=== PATIENT | male | born 1990 | race Caucasian/White ===

== ENCOUNTER 2017-11-11 01:15 | Emergency (ER) | payer SELFPAY ==
[2017-11-11] MEDS ORDERED: 0.9 % SODIUM CHLORIDE 1,000 ML BAG IV ONE (01:44)
[2017-11-11] MEDS ORDERED: KETOROLAC 30 MG/ML VIAL IVP ONE (01:44)
[2017-11-11] MEDS ORDERED: ONDANSETRON HCL IV 4 MG/2 ML VIAL IV ONE (01:44)
--- NOTE | 2017-11-11 01:51 | Emergency Department Record ---
History of Present Illness - General Chief complaint: Flank Pain Stated complaint: KIDNEY STONE Time Seen by Provider: 11/11/17 01:34 Source: Patient, Family Mode of Arrival: Ambulatory Limitations: No limitations - History of Present Illness Initial comments: 27 yo male presents with right flank pain for the last 4 hours that wraps around. He states it is sharp. It is associated with nausea and vomiting. No diarrhea. A week ago he had similar pain. 3 months ago he had blood in his urine that resolved. About 4 years ago he had renal stones that passed spontaneously. He did follow up with a urologist in [place] at that time. No fever. MD Complaint: Other Onset/Timin -: Hour(s) Location: Right flank Radiation: RLQ Severity scale (1-10): 6 Quality: Other Consistency: Constant Improves with: None Reports: Nausea/vomiting - Related Data Previous Rx's Medication Instructions Recorded Hydrocodone/Acetaminophen [[place] 1 each PO Q6H #12 tablet 11/11/17 7.5-325 Tablet] Allergies Allergy/AdvReac Type Severity Reaction Status Date / Time No Known Drug Allergies Allergy Verified 11/11/17 01:31 Travel Screening - Travel/Exposure Within Last 30 Days Have you traveled within the last 30 days?: No - Travel Symptoms Symptom Screening: None Review of Systems Constitutional: Denies: Chills, Fever Eyes: Denies: Eye discharge ENT: Denies: Congestion, Throat pain Respiratory: Denies: Cough Cardiovascular: Denies: Chest pain Endocrine: Denies: Fatigue Gastrointestinal: Reports: As per HPI, Abdominal pain, Nausea, Vomiting Genitourinary: Denies: Dysuria, Frequency, Retention, Testicular pain Musculoskeletal: Denies: Arthralgia, Back pain, Myalgia Skin: Denies: Bruising, Change in color, Rash Neurological: Denies: Headache, Numbness, Weakness Psychiatric: Denies: Anxiety Hematological/Lymphatic: Denies: Blood Clots, Easy bleeding, Easy bruising, Swollen glands Past Medical History - SOCIAL HISTORY Smoking Status: Never smoker - RESPIRATORY Hx Respiratory Disorders: No - CARDIOVASCULAR Hx Cardio Disorders: No - NEURO Hx Neuro Disorders: No - GI Hx GI Disorders: No - Hx Genitourinary Disorders: Yes Hx Kidney Stones: Yes - ENDOCRINE Hx Endocrine Disorders: No - MUSCULOSKELETAL Hx Musculoskeletal Disorders: No - PSYCH Hx Psych Problems: No - HEMATOLOGY/ONCOLOGY Hx Hematology/Oncology Disorders: No Family Medical History Any Significant Family History?: No Family Hx Comment (NOT TO BE USED IN PLACE OF ITEMS BELOW): unknown Physical Exam - General General Appearance: Alert, Oriented x3, Cooperative, No acute distress Limitations: No limitations - Head Head exam: Normal inspection - Eye Eye exam: Normal appearance, PERRL. negative: Conjunctival injection, Periorbital swelling - ENT ENT exam: Normal exam, Mucous membranes moist Ear exam: Normal external inspection Nasal Exam: Normal inspection Mouth exam: Normal external inspection - Neck Neck exam: Normal inspection, Full ROM. negative: Tenderness - Respiratory Respiratory exam: Normal lung sounds bilaterally. negative: Respiratory distress - Cardiovascular Cardiovascular Exam: Regular rate, Normal rhythm, Normal heart sounds - GI/Abdominal GI/Abdominal exam: Soft. negative: Distended, Guarding, Rebound, Rigid, Tenderness - Rectal Rectal exam: negative: Deferred - exam: negative: Deferred - Extremities Extremities exam: Normal inspection, Full ROM, Normal capillary refill. negative: Tenderness - Back Back exam: Reports: Normal inspection, Full ROM. Denies: CVA tenderness (R), Muscle spasm, Rash noted, Tenderness - Neurological Neurological exam: Alert, Normal gait, Oriented X3 - Psychiatric Psychiatric exam: Normal affect, Normal mood - Skin Skin exam: Dry, Intact, Normal color, Warm Course Vital Signs 11/11/17 01:32 Temperature 98.2 F Pulse Rate 52 L Respiratory 16 Rate Blood Pressure 111/77 Pulse Ox 100 - Reevaluation(s) Reevaluation #1: 11/11/17 02:43 The CBC and CMP were reviewed No acute changes The UA has not been given at this time The CT report is pending from [facility]. 11/11/17 02:[address] report was reviewed. High grade obstructive uropathy in the mid right ureter with two stones, 1mm and 6mm. The results were discussed with the patient. His pain is well controlled at this time waiting for a UA. 11/11/17 02:58 EMR reviewed. Prior renal stone was in 2013. 11/11/17 03:03 The pain is currently gone at this time 11/11/17 03:25 The UA is negative for Nitrite and LE. No initial signs of infection The pain remains controlled at this time There is no formulation technician urology at this time at [facility] I informed the patient His pain is well controlled. I offered to call [facility] ED for transfer given he may not pass this stone. He declined transfer at this time. He prefers trial at home to pass the stone given the pain is well controlled and started a few hours prior. He was informed he will need to be seen immediately if he has fever, uncontrolled pain or any concerns. I explained that at 6mm there is an increased chance the stone may not pass. He clearly understands this and the plan to be seen immediately if the stone does not pass or if the pain is not well controlled. I informed him he can change his mind anytime for my assistance in transferring him to a hospital with on-call urology. 11/11/17 03:35 11/11/17 03:51 At this time the patient still maintains he wants DC home. His pain is minimal. We again discussed being seen if the pain returns, and fever or vomiting. Medical Decision Making - Lab Data Result diagrams: 11/11/17 01:43 11/11/17 01:43 Disposition Disposition: Discharge Clinical Impression: Renal calculus or stone, Renal colic on right side Disposition: Home, Self-Care Condition: (1) Good Instructions: Renal Colic (ED) Additional Instructions: You will need to be rechecked if the pain returns and is not well controlled Be seen immediately if vomiting, uncontrolled pain, fever or any new concerns Prescriptions: Hydrocodone/Acetaminophen [[place] 7.5-325 Tablet] 1 each PO Q6H #12 tablet Forms: Patient Portal Access Time of Disposition: 03:30 Quality - Quality Measures Quality Measures: N/A - Blood Pressure Screening Does Patient Have Any of the Following: No Blood Pressure Classification: Normal BP Reading Systolic Measurement: 111 Diastolic Measurement: 77 Screening for High Blood Pressure: < Normal BP, F/U Not Required > [G8783]
[2017-11-11 02:02] LABS: HEMATOCRIT 44.9 % (42.0-52.0); HEMOGLOBIN 15.5 gm/dl (14.0-18.0); MEAN CORPUSCULAR HGB CONC 34.5 g/dl (32-36); MEAN PLATELET VOLUME 9.8 fl (7.4-10.4); PLATELET COUNT 237 K/uL (130-400); RED BLOOD COUNT 5.16 M/uL (4.40-5.70); RED CELL DISTRIBUTION WIDTH 12.4 % (11.5-14.5); WHITE BLOOD COUNT W/O DIFF 10.8 K/uL (4.2-12.2)
[2017-11-11] MEDS ORDERED: MORPHINE SULFATE 5 MG/ML PFS IVP ONE (02:07)
[2017-11-11 02:16] LABS: BLOOD UREA NITROGEN 14 mg/dL (6-20); CREATININE 1.1 mg/dL (0.7-1.2); EST GLOMERULAR FILTRATION RATE > 60 mL/min
[2017-11-11 02:17] LABS: TOTAL PROTEIN 7.5 g/dL (6.6-8.7)
[2017-11-11 02:19] LABS: GLUCOSE,RANDOM 115 mg/dL (74-109)
[2017-11-11 02:21] LABS: ALT/SGPT 13 U/L (<41); AST/SGOT 20 U/L (10.0-50.0)
[2017-11-11 02:22] LABS: ALBUMIN 4.9 g/dL (4.0-5.0); ALKALINE PHOSPHATASE 80 U/L (40-129); BILIRUBIN,DIRECT < 0.2 mg/dL (0-0.3); LIPASE 19 U/L (13-60)
[2017-11-11] MEDS ORDERED: TAMSULOSIN HCL 0.4 MG CAP.ER.24H PO ONE ×2 (02:41→03:29)
[2017-11-11 03:23] LABS: URINE APPEARANCE CLOUDY; URINE BILIRUBIN NEGATIVE (NEGATIVE); URINE BLOOD MODERATE (NEGATIVE); URINE COLOR YELLOW; URINE GLUCOSE (UA) NEGATIVE (NEGATIVE); URINE KETONE 40 mg/dL (NEGATIVE); URINE LEUKOCYTE ESTERASE NEGATIVE (NEGATIVE); URINE NITRITE NEGATIVE (NEGATIVE); URINE PROTEIN TRACE (NEGATIVE)
[2017-11-11] MEDS ORDERED: HYDROCODONE/APAP 7.5/325MG TABLET PO ONE ×2 (03:29→03:35)
[2017-11-11] MEDS ORDERED: ONDANSETRON 4 MG ODT TABLET SL ONE (03:29)
[2017-11-11 03:31] LABS: URINE CALCIUM OXALATE CRYSTALS 1+ /hpf; URINE WBC 0 - 2 (0-2/hpf)
[2017-11-11 03:32] LABS: URINE AMORPHOUS SEDIMENT 3+
--- NOTE | 2017-11-11 15:20 | CT SCAN REPORT ---
EXAM: CT OF THE ABDOMEN AND PELVIS WITHOUT CONTRAST HISTORY: RIGHT FLANK PAIN. RIGHT LOWER QUADRANT PAIN. VOMITING. KIDNEY STONE HISTORY. TECHNIQUE: Thin collimation helical CT examination of the abdomen and pelvis was performed without oral or intravenous contrast administration. Lack of oral and IV contrast utilization limits evaluation of the bowel and solid viscera respectively. Comparison: CT of the abdomen and pelvis without contrast dated 11/16/13. FINDINGS: LOWER THORAX: Unremarkable. ABDOMEN: Liver: Normal. Gallbladder and bile ducts: Unremarkable. No calcified gallstone or biliary ductal dilatation. Pancreas: Unremarkable. No pancreatic duct dilatation. Spleen: Normal. Adrenal glands: Normal. Kidneys and ureters: There is moderate right hydroureteronephrosis down to the proximal-mid ureteral level where there is an obstructing 6 x 3 mm calculus. There is associated mild enlargement of the right kidney and right perinephric fat stranding. The left kidney and its collecting system are unremarkable. Stomach and bowel: No bowel dilatation or bowel wall thickening. Appendix: Normal. PELVIS: Bladder: Normal. Reproductive: No mass. Normal sized prostate. ABDOMEN AND PELVIS: Intraperitoneal space: No free intraperitoneal air nor ascites. Bone/joints: No lytic or blastic bone lesion. Soft tissues: Unremarkable. Vasculature: Normal. Lymph nodes: No enlarged lymph node. IMPRESSION: 1. 6 X 3 MM OBSTRUCTING CALCULUS IN THE MID RIGHT URETER WITH MODERATE UPSTREAM COLLECTING SYSTEM DILATATION AND MILD RIGHT PERINEPHRIC FAT STRANDING/ EDEMA. 2. NORMAL APPENDIX. JOB NUMBER: [id number] [facility]
== END 2017-11-11 03:55 | disposition home or self-care (01) ==
LOC: ER 01:15
DX: N20.0 Calculus of kidney (principal); R11.2 Nausea with vomiting, unspecified; Z87.442 Personal history of urinary calculi
CPT/HCPCS: 99284 ×2; 96374; 96375; 96361; 83690; 80076; 80048; 81001; 85027; 74176; J1885; J2405; J2270; J7030

== ENCOUNTER 2019-08-16 10:31 | Emergency (ER) | payer MEDICAID, BC ==
[2019-08-16] MEDS ORDERED: 0.9 % SODIUM CHLORIDE 1,000 ML BAG IV ONE ×2 (10:55→11:54)
[2019-08-16] MEDS ORDERED: ACETAMINOPHEN 500 MG TABLET PO ONE (10:57)
--- NOTE | 2019-08-16 11:02 | Emergency Department Record ---
History of Present Illness - General Chief Complaint: Chest Pain Stated Complaint: CHEST DISCOMFORT Time Seen by Provider: 08/16/19 10:55 Source: Patient, Family () Mode of Arrival: Ambulatory Limitations: No limitations - History of Present Illness Initial Comments: To ED with with 3-4 days of cough and body aches. Pt has had chills at home but no measured temp. Pt this AM felt worse with "chest pains that were sharp around my heart". These a fleeting lasting seconds. Cough has yellow sputum in the AM. Pt is a non smoker and in general good health. No DM. There is no vomiting but he did have one day of diarrhea 4 days ago, resolved after 24 hours. 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 No prior treatment for this illness. Pt this AM notes "dizziness". Onset/Timin -: Hour(s) Pain Location: Left chest Quality: Other Consistency: Intermittent Improves With: Nothing Worsens With: Nothing - Related Data Home Medications Medication Instructions Recorded Confirmed Last Taken No Home Med [NO HOME MEDS] 08/16/19 08/16/19 Unknown Allergies Allergy/AdvReac Type Severity Reaction Status Date / Time No Known Drug Allergies Allergy Verified 08/16/19 10:39 Travel Screening - Travel/Exposure Within Last 30 Days Have you traveled within the last 30 days?: No Review of Systems Constitutional: Reports: Chills, Fever, Weakness Eyes: Denies: Eye discharge, Eye pain, Photophobia ENT: Denies: Congestion, Ear pain, Throat pain Respiratory: Reports: As per HPI, Cough. Denies: Hemoptysis, Wheezes Cardiovascular: Reports: As per HPI, Chest pain. Denies: Orthopnea Endocrine: Reports: Fatigue. Denies: Polydipsia, Polyuria Gastrointestinal: Reports: As per HPI, Diarrhea. Denies: Abdominal pain, Nausea, Vomiting Musculoskeletal: Reports: Back pain, Myalgia. Denies: Joint swelling Skin: Denies: Bruising, Rash Neurological: Reports: Other (dizziness this AM ). Denies: Confusion Psychiatric: Denies: Anxiety, Suicidal thoughts Hematological/Lymphatic: Denies: Anemia Past Medical History - SOCIAL HISTORY Smoking Status: Never smoker Alcohol Use: None Drug Use: None - RESPIRATORY Hx Respiratory Disorders: No - CARDIOVASCULAR Hx Cardio Disorders: No - NEURO Hx Neuro Disorders: No - GI Hx GI Disorders: No - Hx Genitourinary Disorders: Yes Hx Kidney Stones: Yes - ENDOCRINE Hx Endocrine Disorders: No - MUSCULOSKELETAL Hx Musculoskeletal Disorders: No - PSYCH Hx Psych Problems: No - HEMATOLOGY/ONCOLOGY Hx Hematology/Oncology Disorders: No Family Medical History Any Significant Family History?: No Family Hx Comment (NOT TO BE USED IN PLACE OF ITEMS BELOW): unknown Physical Exam - General General Appearance: Alert, Oriented x3, Cooperative, Moderate distress Limitations: No limitations - Head Head exam: Atraumatic, Normal inspection - Eye Eye exam: Normal appearance, PERRL - ENT ENT exam: Mucous membranes dry, TM's normal bilaterally Ear exam: Normal external inspection Nasal Exam: Other (congestion with clear mucos) Mouth exam: Normal external inspection Teeth exam: Normal inspection Throat exam: Normal inspection - Neck Neck exam: Normal inspection, Full ROM. negative: Lymphadenopathy, Meningismus, Tenderness - Respiratory Respiratory exam: Normal lung sounds bilaterally. negative: Respiratory distress, Rhonchi, Wheezes - Cardiovascular Cardiovascular Exam: Regular rate, Normal heart sounds, Tachycardia (HR 100). negative: Diastolic murmur Peripheral Pulses: 2+: Radial (R), Radial (L) - GI/Abdominal GI/Abdominal exam: Soft, Normal bowel sounds. negative: Distended, Guarding, Tenderness - Extremities Extremities exam: Normal inspection, Full ROM. negative: Calf tenderness, Pedal edema, Tenderness - Back Back exam: Reports: Normal inspection - Neurological Neurological exam: Alert, Normal gait, Oriented X3 - Psychiatric Psychiatric exam: Anxious, Normal mood - Skin Skin exam: Normal color. negative: Pallor, Petechiae, Rash Course Vital Signs 08/16/19 10:35 Temperature 100.2 F H Pulse Rate 96 H Respiratory 20 Rate Blood Pressure 108/75 Pulse Ox 100 - Reevaluation(s) Reevaluation #1: 08/16/19 11:56 CXR and EKG normal with occasional unifocal PVCs, labs normal, flu neg. Improved with IV fluids and tylenol. Mild nausea. Will give Toradol, Zofran and Mag IV (for PVCs). at bedside. Reevaluation #2: 08/16/19 13:03 Improved. Tolerated po fluids. Discussed findings and plan. Both pt and understand and agree. Procedures - EKG Initial Date: 08/16/19 Time: 10:38 EKG: Abnormal EKG (unifocal PVC) Medical Decision Making - Lab Data Result diagrams: 08/16/19 10:50 08/16/19 10:50 Disposition Disposition: Discharge Clinical Impression: Systemic viral illness Disposition: Home, Self-Care Condition: (2) Stable Instructions: Viral Syndrome (ED) Additional Instructions: Rest at home. Increased fluids Tylenol or advil for pains. Family Doctor recheck in 2 days Return to the ED as needed. Forms: Patient Portal Access Time of Disposition: 13:03 Quality - Quality Measures Quality Measures: N/A - Blood Pressure Screening Does Patient Have Any of the Following: No Blood Pressure Classification: Normal BP Reading Systolic Measurement: 108 Diastolic Measurement: 75 Screening for High Blood Pressure: < Normal BP, F/U Not Required > [G8783]
[2019-08-16 11:10] LABS: ABSOLUTE NEUTROPHIL COUNT 3.82; BASO % 0.2 % (0-6); EOS % 0.8 % (0-6); GRAN % 77.8 % (47-80); HEMATOCRIT 43.6 % (42.0-52.0); LYMPH % 10.4 % (16-45); MEAN CORPUSCULAR HEMOGLOBIN 29.6 pg (27-33); MEAN CORPUSCULAR HGB CONC 34.4 g/dl (32-36); MEAN PLATELET VOLUME 9.7 fl (7.4-10.4); MONO % 10.8 % (0-9); PLATELET COUNT 222 K/uL (130-400); RED BLOOD COUNT 5.07 M/uL (4.40-5.70); RED CELL DISTRIBUTION WIDTH 12.1 % (11.5-14.5); WHITE BLOOD COUNT W/O DIFF 4.9 K/uL (4.2-12.2)
[2019-08-16 11:17] LABS: URINE APPEARANCE CLEAR; URINE BILIRUBIN NEGATIVE (NEGATIVE); URINE BLOOD NEGATIVE (NEGATIVE); URINE COLOR YELLOW; URINE GLUCOSE (UA) NEGATIVE (NEGATIVE); URINE KETONE NEGATIVE (NEGATIVE); URINE LEUKOCYTE ESTERASE NEGATIVE (NEGATIVE); URINE NITRITE NEGATIVE (NEGATIVE); URINE PROTEIN NEGATIVE (NEGATIVE); URINE UROBILINOGEN 0.2 E.U./dL (0.20 - 1.00)
[2019-08-16 11:28] LABS: INFLUENZA A NEGATIVE (NEGATIVE); INFLUENZA B NEGATIVE (NEGATIVE)
[2019-08-16 11:29] LABS: BLOOD UREA NITROGEN 13 mg/dL (6-20); EST GLOMERULAR FILTRATION RATE > 60 mL/min
[2019-08-16 11:32] LABS: GLUCOSE,RANDOM 103 mg/dL (74-109)
[2019-08-16] MEDS ORDERED: KETOROLAC 30 MG/ML VIAL IVP ONE (11:54)
[2019-08-16] MEDS ORDERED: ONDANSETRON HCL IV 4 MG/2 ML VIAL IVP ONE (11:55)
[2019-08-16] MEDS ORDERED: MAGNESIUM SULFATE 16 MEQ in 0.9 % SODIUM CHLORIDE 100ML 100 ML IV ONE (11:58)
--- NOTE | 2019-08-16 12:21 | RADIOLOGY REPORT ---
EXAMINATION: Two View Chest Radiographs EXAM DATE: 08/16/2019 11:52 AM TECHNIQUE: PA and lateral chest radiography obtained. INDICATION: cough. Chest pain with cough and dizziness onset today. COMPARISON: None FINDINGS: The heart and pulmonary vasculature are normal in size and there are no acute pulmonary infiltrates o r pleural effusions. There is some prominence of the central bronchovascular markings perhaps with ea rly peribronchial cuffing which can be seen with viral inflammatory change or reactive airway disease and clinical correlation is recommended. No acute bony abnormality is seen. IMPRESSION: No acute pulmonary infiltrates or pleural effusions with additional comments as above. No prior study currently available for comparison. Dictated by: Wilber Cortez MD on 08/16/2019 12:16 PM. .
== END 2019-08-16 13:20 | disposition home or self-care (01) ==
LOC: ER 10:31
DX: B34.9 Viral infection, unspecified (principal); R07.89 Other chest pain; R42 Dizziness and giddiness; R11.10 Vomiting, unspecified; R50.81 Fever presenting with conditions classified elsewhere
CPT/HCPCS: 71046; 80048; 81003; 85025; 87400; 93005; 93010; 96374; 96375; 99284; J1885; J2405; J7030